=== PATIENT | male | born 1985 | race Caucasian/White ===

== ENCOUNTER 2024-12-21 15:06 | Inpatient (IN) | payer MEDICAID, OTHER ==
[2024-12-21] MEDS ORDERED: LORazepam 1 MG TAB PO PRN (16:06)
[2024-12-21] MEDS ORDERED: IBUPROFEN 600 MG TAB PO PRN (16:06)
[2024-12-21] MEDS ORDERED: HALOPERIDOL LACTATE 5 MG/ML 1 ML VIAL IM PRN (16:06)
[2024-12-21] MEDS ORDERED: MAG HYDROX/AL HYDROX/SIMETH 355 ML BOTTLE PO PRN (16:06)
[2024-12-21] MEDS ORDERED: MAGNESIUM HYDROXIDE 2,400 MG/30 ML CUP PO PRN (16:06)
[2024-12-21] MEDS ORDERED: ACETAMINOPHEN TAB 325 MG TAB PO PRN (16:06)
[2024-12-21] MEDS: LORazepam 1 MG TAB PO PRN ×2 (16:45→20:42)
[2024-12-21] MEDS: NICOTINE GUM (POLACRILEX) 2 MG GUM BUCCAL PRN (16:46)
--- NOTE | 2024-12-21 18:29 | P.MDCNMH ---
History of Present Illness H&P Date: 12/21/24 Chief Complaint: Medical evaluation 39-year-old man with no reported medical history presented for mental health evaluation. Medicine was consulted for medical management. Patient denies any active or chronic medical issues at this time. Denies any home medications. He does not see a primary care physician. Patient is hemodynamically stable. There are no labs or images to review. Gen: In NAD, non-toxic HEENT: normocephalic, atraumatic, hearing acuity is intant, mucous membranes moist CVS: perfusing all extremities well, no pitting edema, Respiratory: symmetric chest expansion, no accessory muscle use, GI: soft, NTTP, ND, : no suprapubic tenderness, no CVA tenderness MSK/Derm: no rashes, cyanosis Neuro: CN II-XII intact, no motor weakness, Psych: cooperative, euthymic mood, judgment and insight is intact Assessment/plan: Marijuana abuse -Cessation counseling advised Primary care screening - Will need referral to PCP - Will need lipid panel, A1c, TSH during clinic visit Thank you for this consult, please reach out with any further questions or concerns. Past Medical History Past Medical History: No Reported History History of Any Multi-Drug Resistant Organisms: None Reported Past Surgical History: No Surgical Hx Reported Past Anesthesia/Blood Transfusion Reactions: No Reported Reaction Past Psychological History: No Psychological Hx Reported Smoking Status: Vaper Past Alcohol Use History: Heavy Past Drug Use History: Marijuana Additional Drug Use History / Comment(s): MJ 1 x day Medications and Allergies Home Medications Medication Instructions Recorded Confirmed Type No Known Home Medications 12/21/24 12/21/24 History Allergies Allergy/AdvReac Type Severity Reaction Status Date / Time No Known Allergies Allergy Verified 12/21/24 15:11 Physical Exam Osteopathic Statement: *. No significant issues noted on an osteopathic structural exam other than those noted in the History and Physical/Consult. Vitals: Vital Signs Temp Pulse Resp BP Pulse Ox 12/21/24 16:41 98.6 F 92 18 123/85 97 Intake and Output 12/21/24 12/21/24 12/21/24 06:59 14:59 22:59 Other: Weight 78 kg Cranial Nerve Examination - Cranial Nerves Cranial Nerve II- Optic: Intact Cranial Nerve III- Oculomotor: Intact Cranial Nerve IV- Trochlear: Intact Cranial Nerve V- Trigeminal: Intact Cranial Nerve - Abducens: Intact Cranial Nerve VII- Facial: Intact Cranial Nerve VIII- Auditory: Intact Cranial Nerve IX- Glossopharyngeal: Intact Cranial Nerve X- Vagus: Intact Cranial Nerve XI- Accessory: Intact Cranial Nerve XII- Hypoglossal: Intact
[2024-12-22 08:25] LABS: Basophils # (A) 0.05 10*3/uL (0.00-0.10); Basophils % (A) 0.9 %; Eosinophils # (A) 0.19 10*3/uL (0.04-0.35); Eosinophils % (A) 3.3 %; HCT 48.0 % (39.6-50.0); HGB 16.8 g/dL (13.0-17.0); Lymphocytes # (A) 2.08 10*3/uL (0.90-5.00); Lymphocytes % (A) 36.6 %; MCH 32.1 pg (27.0-32.0); MCHC 35.0 g/dL (32.0-37.0); MCV 91.6 fL (80.0-97.0); Monocytes # (A) 0.48 10*3/uL (0.20-1.00); Monocytes % (A) 8.4 %; Neutrophils # (A) 2.88 10*3/uL (1.80-7.70); Neutrophils % (A) 50.6 %; Platelet Count 300 10*3/uL (140-440); RBC 5.24 10*6/uL (4.40-5.60); RDW 12.1 % (11.5-14.5); WBC 5.69 10*3/uL (4.50-10.00)
[2024-12-22 08:39] LABS: ALT 20 U/L (4-49); AST 28 U/L (17-59); African American GFR (CKD) >90 (>60 ml/min/1.73 sqM); Albumin 4.6 g/dL (3.5-5.0); Alkaline Phosphatase 69 U/L (38-126); Anion Gap 8 mmol/L; Blood Urea Nitrogen 12 mg/dL (9-20); Calcium 9.7 mg/dL (8.4-10.2); Carbon Dioxide 27 mmol/L (22-30); Chloride 105 mmol/L (98-107); Glucose 96 mg/dL (74-99); Non-African American GFR(CKD) >90 (>60 ml/min/1.73 sqM); Potassium 4.5 mmol/L (3.5-5.1); Sodium 140 mmol/L (137-145); Total Protein 7.4 g/dL (6.3-8.2)
[2024-12-22] MEDS: THIAMINE 100 MG TAB PO SCH (09:01)
[2024-12-22] MEDS: FOLIC ACID 1 MG TAB PO SCH (09:01)
[2024-12-22] MEDS: MULTIVITAMINS, THERA 1 EACH TAB PO SCH (09:01)
[2024-12-22] MEDS: NICOTINE 14MG/24HR PATCH TRANSDERM SCH ×2 (09:13→12:25)
[2024-12-22] MEDS: NALTREXONE HCL 50 MG TAB PO SCH (13:45)
--- NOTE | 2024-12-22 13:50 | P.HP ---
Psychiatric H&P - . H&P Date: 12/22/24 History & Physical: Allergies Allergy/AdvReac Type Severity Reaction Status Date / Time No Known Allergies Allergy Verified 12/21/24 15:11 Vital Signs Temp 97.5 F L 12/22/24 11:09 Pulse 97 12/22/24 11:09 Resp 14 12/22/24 11:09 BP 127/89 12/22/24 11:09 Pulse Ox 97 12/22/24 11:09 FiO2 Intake & Output 12/21/24 12/22/24 12/22/24 18:59 06:59 18:59 Weight 78 kg Laboratory Last Values WBC 5.69 10*3/uL (4.50-10.00) 12/22/24 08:06 RBC 5.24 10*6/uL (4.40-5.60) 12/22/24 08:06 Hgb 16.8 g/dL (13.0-17.0) 12/22/24 08:06 Hct 48.0 % (39.6-50.0) 12/22/24 08:06 MCV 91.6 fL (80.0-97.0) 12/22/24 08:06 MCH 32.1 pg (27.0-32.0) H 12/22/24 08:06 MCHC 35.0 g/dL (32.0-37.0) 12/22/24 08:06 Plt Count 300 10*3/uL (140-440) 12/22/24 08:06 MPV 9.1 fL (9.5-12.2) L 12/22/24 08:06 Immature Gran % (Auto) 0.2 % 12/22/24 08:06 Neutrophils % 50.6 % 12/22/24 08:06 Lymphocytes % 36.6 % 12/22/24 08:06 Monocytes % 8.4 % 12/22/24 08:06 Eosinophils % 3.3 % 12/22/24 08:06 Basophils % 0.9 % 12/22/24 08:06 Immature Gran # 0.01 10*3/uL (0.00-0.04) 12/22/24 08:06 Neutrophils # 2.88 10*3/uL (1.80-7.70) 12/22/24 08:06 Lymphocytes # 2.08 10*3/uL (0.90-5.00) 12/22/24 08:06 Monocytes # 0.48 10*3/uL (0.20-1.00) 12/22/24 08:06 Eosinophils # 0.19 10*3/uL (0.04-0.35) 12/22/24 08:06 Basophils # 0.05 10*3/uL (0.00-0.10) 12/22/24 08:06 Sodium 140 mmol/L (137-145) 12/22/24 08:06 Potassium 4.5 mmol/L (3.5-5.1) 12/22/24 08:06 Chloride 105 mmol/L (98-107) 12/22/24 08:06 Carbon Dioxide 27 mmol/L (22-30) 12/22/24 08:06 Anion Gap 8 mmol/L 12/22/24 08:06 BUN 12 mg/dL (9-20) 12/22/24 08:06 Creatinine 0.76 mg/dL (0.66-1.25) 12/22/24 08:06 Est GFR (CKD-EPI)AfAm >90 (>60 ml/min/1.73 sqM) 12/22/24 08:06 Est GFR (CKD-EPI)NonAf >90 (>60 ml/min/1.73 sqM) 12/22/24 08:06 Glucose 96 mg/dL (74-99) 12/22/24 08:[address] Glu mg/dL 100 mg/dL 12/22/24 08:06 Hemoglobin A1c 5.1 % (<=6.0) 12/22/24 08:06 Calcium 9.7 mg/dL (8.4-10.2) 12/22/24 08:06 Total Bilirubin 1.3 mg/dL (0.2-1.3) 12/22/24 08:06 AST 28 U/L (17-59) 12/22/24 08:06 ALT 20 U/L (4-49) 12/22/24 08:06 Alkaline Phosphatase 69 U/L (38-126) 12/22/24 08:06 Total Protein 7.4 g/dL (6.3-8.2) 12/22/24 08:06 Albumin 4.6 g/dL (3.5-5.0) 12/22/24 08:06 TSH 1.240 mIU/L (0.465-4.680) 12/22/24 08:06 12/22/24 13:45 IDENTIFYING DATA: Patient is a 39-year-old male, living with girlfriend, employed CHIEF COMPLAINT: SI, alcohol intoxication HPI: Patient presented to the hospital with SI with a plan. Per EPS, "Pt was at [facility] and brought to ED 12/19 while intoxicated (BAL 296) and petitioned by SW for suicidal ideations with plan to hang himself. Pt denies these accusations and believes there has been a misunderstanding. Report recv'd from [facility] and stated the pt was recently in rehab at [place] (per pt) a couple of months ago for ETOH abuse. Has been sober until the past few days where he has been drinking approx. 2.5 pints of vodka. The GF informed [facility] staff that the pt has been saying these things frequently for the past month causing concern. UDS pos for benzo's and MJ. Has been to rehab approx. 3x.". Patient seen and evaluated on the unit and was agreeable with speaking to teletypewriter operator in office. He states ultimately being here due to "saying something stupid while intoxicated". Patient does report a history of alcohol use disorder and has gone to rehab 3 times, most recent being 3-4 months ago at [place]. He denies any consistent use of alcohol however did admit to drinking 2-half pints of vodka the day of admission. He is not agreeable with rehab but is interested in being started on Vivitrol for maintenance and sobriety. 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 He states having his girlfriend and dog to live for. He denied any depressive symptoms or alcohol withdrawal symptoms. Patient denies any suicidal or homicidal ideations intent or plan. At this time patient denies any auditory or visual hallucinations. Patient denies any flight of ideas racing thoughts and increased in goal directed behavior. Patient admits to using alcohol however denies daily use, cannabis sometimes and daily nicotine use. PAST PSYCHIATRIC HISTORY: Patient has a history of alcohol use disorder, depression. Patient denies being on any psychiatric medications. Patient reports 1 remote inpatient hospitalization "many years ago". Patient denies any psychiatric outpatient follow-up. Patient denies any history of suicide attempts in the past. PMH: as per ER note ALLERGIES: as per EMR SUBSTANCE USE HISTORY: As per HPI FAMILY PSYCHIATRIC/SUBSTANCE USE HISTORY: Denies SOCIAL HISTORY: Patient has no children and lives with girlfriend and dog. 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 MENTAL STATUS EXAM: General Appearance: Patient appears to be stated age is alert, directable, and attempts to cooperate. Patient appears to have fair hygiene and grooming. Behavior: Patient displays slight psychomotor restlessness Speech: Patient's speech is fluent and nonpressured. Mood/Affect: Patient reports their mood is "okay", affect is congruent and blunted Suicidality/Homicidality: Patient denies having any homicidal ideation intent or plan. Denies any suicidal ideations intent or plan Perceptions: Patient denies any visual hallucinations and denies any auditory hallucinations Though content/process: There is no evidence of any delusional thought content a nd thought process is linear and goal-directed. Memory and concentration: AOX3, grossly intact for the purposes of this session. Can spell "WORLD" backwards Judgment and insight: Poor STRENGTHS/WEAKNESSES: strength is that patient is resilient. Weakness is that patient has poor judgment, abuses alcohol and is impulsive INTELLECT: Average IMPRESSIONS: Alcohol use disorder, severe Rule out depressive disorder due to substance use Nicotine dependence Rule out cannabis use disorder PLAN: -Patient is admitted under voluntary status to MHU for stabilization of psychiatric symptoms and safety. Patient has signed adult voluntary form and and is placed in patient's chart. -Medications : Start Vivitrol 380 mg IM today for alcohol cravings - Ativan and Haldol PRN for agitation/aggression -Started thiamine, MVM for etoh use -CIWA protocol with Ativan PRN for ETOH withdrawal. -Patient was counselled on substance abuse and desired to cut back on use-Will offer patient subtance use rehab -Patient was informed of the risks, benefits and side effects of the medication and patient verbally consented to taking the medications. Patient signed med consent form and was placed in chart. [Patient offered and declined patient education sheet for psychotropic medications.] -Internal Medicine consult to perform medical evaluation and physical. -NRT -nicotine patch -SW on board for discharge planning. Encourage patient to participate in groups to work on coping skills. Anticipate discharge home with girlfriend tomorrow after Vivitrol injection
[2024-12-22] MEDS: NALTREXONE MICROSPHERES 380 MG VIAL (NO COST - VIVITROL) IM ONE (14:09)
[2024-12-22 15:43] LABS: Cholesterol 182.00 mg/dL (0.00-200.00); HDL Cholesterol 62.20 mg/dL (40.00-60.00); LDL Cholesterol,Calculated 92.2 mg/dL (0.0-131.0); Triglycerides 138.00 mg/dL (0.00-149.00); VLDL Calculation 27.60 mg/dL (5.00-40.00)
[2024-12-22 20:43] VITALS: RESP 16
[2024-12-23 09:22] VITALS: BP 119/84; PULSE 100; TEMP 98.4
--- NOTE | 2024-12-23 12:56 | P.DS ---
Providers Date of admission: 12/21/24 16:11 Expected date of discharge: 12/23/24 Attending physician: Shea Gutierres MD Consults: 12/21/24 16:06 Consult Physician Routine Consulting Provider: Ariane Physician Consult Reason/Comments: History and Physical, New Admission Do you want consulting provider notified?: Yes Primary care physician: Physician Nonstaff - Discharge Diagnosis(es) (1) Alcohol use disorder, severe, dependence Current Visit: Yes Status: Acute Priority: High (2) Nicotine dependence Current Visit: Yes Status: Acute Priority: Low Hospital Course: Admission HPI: Admission note was completed by lyric writer "Patient presented to the hospital with SI with a plan. Per EPS, "Pt was at [facility] and brought to ED 12/19 while intoxicated (BAL 296) and petitioned by SW for suicidal ideations with plan to hang himself. Pt denies these accusations and believes there has been a misunderstanding. Report recv'd from [facility] and stated the pt was recently in rehab at [place] (per pt) a couple of months ago for ETOH abuse. Has been sober until the past few days where he has been drinking approx. 2.5 pints of vodka. The GF informed [facility] staff that the pt has been saying these things frequently for the past month causing concern. UDS pos for benzo's and MJ. Has been to rehab approx. 3x.". Patient seen and evaluated on the unit and was agreeable wi th speaking to lyric writer in office. He states ultimately being here due to "saying something stupid while intoxicated". Patient does report a history of alcohol use disorder and has gone to rehab 3 times, most recent being 3-4 months ago at [place]. He denies any consistent use of alcohol however did admit to drinking 2-half pints of vodka the day of admission. He is not agreeable with rehab but is interested in being started on Vivitrol for maintenance and sobriety. 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 He states having his girlfriend and dog to live for. He denied any depressive symptoms or alcohol withdrawal symptoms. Patient denies any suicidal or homicidal ideations intent or plan. At this time patient denies any auditory or visual hallucinations. Patient denies any flight of ideas racing thoughts and increased in goal directed behavior. Patient admits to using alcohol however denies daily use, cannabis sometimes and daily nicotine use." Hospital course: Upon admission to the unit patient was directable and agreeable to commence treatment and signed adult voluntary form.. Patient got along well with other patients on the unit and followed unit protocol. Patient was compliant with the medications and denied any side effects throughout hospital course. Patient was started on Vivitrol 380 mg IM on 12/22 with the frequency of every 4 weeks, next due on 01/19. Patient had previously been on naltrexone and tolerated this well with no adverse effects and given his ongoing alcohol use patient was transitioned to [facility] in hopes of maintaining his sobriety. Patient spoke of his stressors and engaged in therapy both group and individual. Patient was also seen by medical team for history and physical exam. Throughout the course of the hospitalization patient gradually improved with regards to mood, anxiety, sleep and returned back to their baseline level of functioning. On the day of discharge patient denied any suicidal or homicidal ideations intent or plan denied any auditory or visual hallucinations. The patient denied any access to guns or weapons. Patient denied any paranoia and did not endorse any delusions. Patient does have a significant history of substance abuse and was counseled on abstaining from all substances including alcohol and marijuana. Patient was offered however declined inpatient substance-abuse rehab. Patient was also counseled on the medications and need for regular compliance and was encouraged to follow-up with their outpatient appointment for mental health and also for primary care. Patient reports going to a sober living community upon discharge to maintain his sobriety with his alcohol use and he will follow-up with [facility]. Mental status exam: General Appearance: Patient appears to be stated age is alert, pleasant, and cooperative. Patient is in no acute distress and has improved hygiene and grooming Behavior: Patient is calmly seated without any agitated behavior. Speech: Patient's speech is fluent and nonpressured. Mood/Affect: Patient reports their mood is "good", affect is congruent and euthymic. Suicidality/Homicidality: Patient denies having any suicidal or homicidal ideation intent or plan. Perceptions: Patient denies any auditory or visual hallucinations. Though content/process: There is no evidence of any delusional thought content and thought process is linear and goal-directed. Memory and concentration: AOX3, grossly intact for the purposes of this session. Can spell "WORLD" backwards correctly. Judgment and insight: Fair Impression: Alcohol use disorder, severe Nicotine dependence Plan: -Continue with discharge today as patient has improved and stabilized psychiatrically and is not currently an imminent threat to themself and/or others. -Continue medications: Vivitrol 380 mg IM every 4 weeks last given on 12/22 and next due on 01/19/2025 -Patient was counseled on the need for medication compliance and appropriate follow-up at mental health and also primary care for medical issues. Patient verbalized understanding and agreed. -Social work to help coordinate patients discharge today. also to ensure safe home environment that guns/weapons are either removed from the home or locked away. Social work also to arrange for patients follow up appointments with [facility] for psychiatric care along with follow up with primary care provider. -Patient counseled on abstaining from recreational drugs and marijuana and alcohol. Was informed/educated on the adverse effects on their physical and mental health. Patient verbally agreed and understood. Patient was offered substance abuse treatment however declined at this time. -Patient was instructed to return to the hospital or seek immediate medical care if their psychiatric or medical symptoms do worsen or reoccur. Abnormal Labs 12/22/24 12/22/24 08:06 08:06 MCH 32.1 H MPV 9.1 L HDL Cholesterol 62.20 H Allergies Allergy/AdvReac Type Severity Reaction Status Date / Time No Known Allergies Allergy Verified 12/21/24 15:11 Vital Signs Temp 98.4 F 12/23/24 09:00 Pulse 100 12/23/24 09:00 Resp 16 12/22/24 20:40 BP 119/84 12/23/24 09:00 Pulse Ox 97 12/23/24 09:00 FiO2 Patient Condition at Discharge: Stable Plan - Discharge Summary Discharge Rx Participant: No New Discharge Prescriptions: New traZODone HCL [Desyrel] 50 mg PO HS PRN 30 Days #30 tab PRN Reason: Insomnia Multivitamins, Thera [Multivitamin (formulary)] 1 each PO DAILY 30 Days #30 tab Nicotine Gum (Polacrilex) [Nicorette] 2 mg BUCCAL Q4HR PRN 30 Days #60 pieceofgum PRN Reason: Nicotine Cravings Thiamine [Vitamin B-1] 100 mg PO DAILY 30 Days #30 tab Naltrexone Microspheres [VivitroL] 380 mg IM QMONTHLY 30 Days #1 each Folic Acid 1 mg PO DAILY 30 Days #30 tab Nicotine 14Mg/24Hr Patch [Habitrol] 1 patch TRANSDERM DAILY 30 Days #30 patch Discharge Medication List Folic Acid 1 mg PO DAILY 30 Days #30 tab 12/23/24 [Rx] Multivitamins, Thera [Multivitamin (formulary)] 1 each PO DAILY 30 Days #30 tab 12/23/24 [Rx] Naltrexone Microspheres [VivitroL] 380 mg IM QMONTHLY 30 Days #1 each 12/23/24 [Rx] Nicotine 14Mg/24Hr Patch [Habitrol] 1 patch TRANSDERM DAILY 30 Days #30 patch 12/23/24 [Rx] Nicotine Gum (Polacrilex) [Nicorette] 2 mg BUCCAL Q4HR PRN 30 Days #60 pieceofgum 12/23/24 [Rx] Thiamine [Vitamin B-1] 100 mg PO DAILY 30 Days #30 tab 12/23/24 [Rx] traZODone HCL [Desyrel] 50 mg PO HS PRN 30 Days #30 tab 12/23/24 [Rx] Follow up Appointment(s)/Referral(s): [facility] [NON-STAFF] - 1 Week Patient Instructions/Handouts: How to Stop Smoking (DC), Depression (DC), Abuse of Alcohol (DC) Activity/Diet/Wound Care/Special Instructions: [facility] [place] Discharge Info Avoid the use of street drugs and alcohol. Take all medications as prescribed. When you are in need of refills on your medications, please contact your outpatient medical provider and/or outpatient psychiatrist. Please go to your scheduled outpatient appointments for aftercare treatment. If symptoms return or become worse, call the crisis line at or and/or visit the nearest emergency room for assistance. National Suicide and Crisis Lifeline - call or text 899. Discharge/Stand Alone Forms: AA Meetings [facility] Discharge Disposition: HOME SELF-CARE
== END 2024-12-23 14:25 | disposition home or self-care (01) | DRG 775 ==
LOC: 3MHU 16:11
PROVIDERS: ADMIT Psychiatry & Neurology Psychiatry; ATTEND Psychiatry & Neurology Psychiatry
DX: F10.229 Alcohol dependence with intoxication, unspecified (principal); Y90.8 Blood alcohol level of 240 mg/100 ml or more; R45.851 Suicidal ideations; F41.9 Anxiety disorder, unspecified; F32.A Depression, unspecified; F12.10 Cannabis abuse, uncomplicated; Z71.51 Drug abuse counseling and surveillance of drug abuser; F17.290 Nicotine dependence, other tobacco product, uncomplicated; Z28.310 Unvaccinated for COVID-19
CPT/HCPCS: 80053; 80061; 83036; 84443; 85025